=== PATIENT | female | born 2000 | race Caucasian/White ===

== ENCOUNTER 2024-12-15 16:29 | Day surgery (SDC) | payer OTHER ==
[2024-12-15 17:03] VITALS: BMI 36.5
[2024-12-15] MEDS ORDERED: hydrALAZINE 20 MG/ML VIAL SLOW IVP PRN (17:04)
[2024-12-15 17:28] LABS: Fetal Membranes Rupture No Membranes Rupture (No Rupture)
[2024-12-15 18:23] LABS: Glucose, Urine (Dipstick) 50 mg/dL (Negative); Leukocyte 25 (Negative); Protein, Urine (Dipstick) 30 mg/dl (Neg-Trace); Specific Gravity, Urine 1.025 (1.005-1.030)
[2024-12-15 19:05] LABS: CAUTI Indications for Culture Pregnancy
[2024-12-15 19:06] LABS: Mucous/LPF 3+ LPF (<2+)
[2024-12-15 19:07] LABS: Bacteria/HPF 3+ HPF (None Seen)
[2024-12-15 19:08] LABS: Urine Culture Reflex Yes Yes
[2024-12-15] MEDS: metroNIDAZOLE 500 MG TAB PO SCH (19:44)
[2024-12-17 04:12] LABS: Chlamydia by PCR, Vaginal Swab Not Detected (NotDetected); GC by PCR, Vaginal Swab Not Detected (NotDetected)
== END 2024-12-15 21:38 | disposition home or self-care (01) ==
LOC: CSHLD/OP 16:29
PROVIDERS: ATTEND Family Medicine
DX: O23.593 Infection of other part of genital tract in pregnancy, third trimester (principal); B96.89 Other specified bacterial agents as the cause of diseases classified elsewhere; Z03.71 Encounter for suspected problem with amniotic cavity and membrane ruled out; Z3A.35 35 weeks gestation of pregnancy; Z91.040 Latex allergy status; Z88.5 Allergy status to narcotic agent; Z79.899 Other long term (current) drug therapy
CPT/HCPCS: 76819; 81001; 84112; 87086; 87480; 87491; 87510; 87591; 87660; 99285